=== PATIENT | male | born 1990 | race Asian ===

== ENCOUNTER 2016-11-13 20:01 | Emergency (ER) | payer MEDICAID ==
[~2016-11-13] VITALS: Ht 185.4 cm; Wt 124.0 kg
[2016-11-13] MEDS ORDERED: HYDROcodone/APAP 5/325 TABLET PO ONE (20:30)
[2016-11-13] MEDS ORDERED: KETOROLAC 30 MG/1 ML IM ONE (20:30)
[2016-11-13] MEDS ORDERED: HYDROcodone/APAP 5/325 TABLET ONE (21:09)
[2016-11-13] MEDS ORDERED: KETOROLAC 30 MG/1 ML ONE (21:09)
[2016-11-13 22:36] VITALS: BP 113/49
== END 2016-11-13 23:15 | disposition home or self-care (01) ==
LOC: ED 23:00
DX: M10.072 Idiopathic gout, left ankle and foot (principal)
CPT/HCPCS: 36415; 73630; 84550; 96372; 99285; J1885

== ENCOUNTER 2020-05-15 20:47 | Emergency (ER) | payer SELFPAY ==
[~2020-05-15] VITALS: Ht 188 cm; Wt 125.8 kg
[2020-05-15 20:49] VITALS: BP 133/82
[2020-05-15] MEDS ORDERED: HYDROcodone/APAP 5/325 TABLET ONE (21:20)
--- NOTE | 2020-05-15 21:25 | NUR ---
seen and examined by PA in triage. patient medicated for pain. discharged with prescriptions and instruction. verbalized understanding.
[2020-05-15] MEDS ORDERED: HYDROcodone/APAP 5/325 TABLET PO ONE (21:30)
== END 2020-05-15 21:30 | disposition home or self-care (01) ==
LOC: ED 21:00
DX: K01.1 Impacted teeth (principal)
CPT/HCPCS: 99283